=== PATIENT | female | born 1960 | race Caucasian/White ===

== ENCOUNTER 2018-07-10 12:41 | Emergency (ER) | payer MEDICAID ==
[~2018-07-10] VITALS: Ht 162.6 cm; Wt 59.0 kg
--- NOTE | 2018-07-10 13:02 | NUR ---
Patient discharged to home in stable conditon & brisk steady gait. Written and verbal after care instructions given to patient. Patient verbalizes understanding of instructions.
== END 2018-07-10 13:03 | disposition home or self-care (01) ==
LOC: ER 12:41
DX: J20.9 Acute bronchitis, unspecified (principal); Z90.49 Acquired absence of other specified parts of digestive tract
CPT/HCPCS: A4663

== ENCOUNTER 2019-02-06 12:22 | Emergency (ER) | payer MEDICAID ==
[~2019-02-06] VITALS: Ht 162.6 cm; Wt 59.0 kg
--- NOTE | 2019-02-06 12:46 | NUR ---
Patient discharged to home in stable conditon. Written and verbal after care instructions given. Patient verbalizes understanding of instructions.pt walks i nsteady gait.
== END 2019-02-06 12:47 | disposition home or self-care (01) ==
LOC: ER 12:22
DX: M54.5 Low back pain (principal); Z90.49 Acquired absence of other specified parts of digestive tract; W19.XXXA Unspecified fall, initial encounter; Y93.89 Activity, other specified; Y92.89 Other specified places as the place of occurrence of the external cause; Y99.8 Other external cause status
CPT/HCPCS: A4663

== ENCOUNTER 2019-07-10 10:27 | Emergency (ER) | payer MEDICAID ==
[~2019-07-10] VITALS: Ht 162.6 cm; Wt 63.5 kg
[2019-07-10] MEDS ORDERED: MAG HYDROX/AL HYDROX/SIMETH 30 ML LIQUID UDC PO ONE (10:45)
[2019-07-10] MEDS ORDERED: LIDOCAINE VISCUS 2% 15 ML UDC MM ONE (10:45)
--- NOTE | 2019-07-10 10:45 | NUR ---
PATIENT WAS MSE BY DR RUDOLPH IN ROM 04B.
[2019-07-10] MEDS ORDERED: LIDOCAINE VISCUS 2% 15 ML UDC ONE (10:53)
[2019-07-10] MEDS ORDERED: MAG HYDROX/AL HYDROX/SIMETH 30 ML LIQUID UDC ONE (10:53)
[2019-07-10 11:09] LABS: BASOPHILS # (AUTO) 0.1 K/uL (0.0-8.0); EOSINOPHILS # (AUTO) 0.1 K/uL (0.0-0.7); EOSINOPHILS % (AUTO) 1.5 % (0.0-7.0); HEMATOCRIT 39.6 % (31.2-41.9); HEMOGLOBIN 13.2 g/dL (10.9-14.3); LYMPHOCYTES # (AUTO) 1.5 K/uL (20.0-40.0); LYMPHOCYTES % (AUTO) 18.9 % (20.5-51.5); MEAN CORPUSCULAR HEMOGLOBIN 30.5 uug (24.7-32.8); MEAN CORPUSCULAR HGB CONC 33 g/dL (32.3-35.6); MEAN CORPUSCULAR VOLUME 91.2 fL (75.5-95.3); MONOCYTES # (AUTO) 0.5 K/uL (2.0-10.0); MONOCYTES % (AUTO) 5.6 % (0.0-11.0); NEUTROPHILS # (AUTO) 5.8 K/uL (1.8-8.9); PLATELET COUNT (AUTO) 220 K/uL (179-408); RED BLOOD CELL COUNT(AUTO) 4.34 MIL/uL (3.63-4.92)
[2019-07-10 11:25] LABS: BILIRUBIN,DIRECT 0.1 mg/dL (0.0-0.2); BILIRUBIN,TOTAL 0.2 mg/dL (0.2-1.0); CREATININE 0.9 mg/dL (0.6-1.3); POTASSIUM 4.1 mmol/L (3.5-5.1); TOTAL PROTEIN, SERUM 7.2 g/dL (6.4-8.2)
[2019-07-10 12:23] LABS: *BILIRUBIN,URIN NEGATIVE (NEGATIVE); *BLOOD, URINE NEGATIVE (NEGATIVE); *CLARITY,URINE CLEAR (CLEAR); *COLOR,URINE YELLOW (YELLOW); *KETONES,URINE NEGATIVE (NEGATIVE); *UROBILINOGEN,URINE 0.2 E.U./dl (NORMAL); LEUKOCYTE ESTERASE ,URINE NEGATIVE (NEGATIVE); NITRITE, URINE NEGATIVE (NEGATIVE); PH,URINE 7.5 (5.0-8.0); UGLUCOSE NEGATIVE (NEGATIVE)
--- NOTE | 2019-07-10 12:41 | NUR ---
PATIENT BACK FROM CT. NOT IN ANY DISTRESS.
--- NOTE | 2019-07-10 13:07 | NUR ---
DR RUDOLPH AT BEDSIDE MADE PATIENT AWRE OF TEST RESULTS.
--- NOTE | 2019-07-10 13:17 | NUR ---
Patient discharged to home in stable condition. Written and verbal after care instructions given. Patient verbalizes understanding of instructions. Stressed follow up or return to ER for worsening s/s.
[2019-07-10 13:19] VITALS: BP 117/82
== END 2019-07-10 13:19 | disposition home or self-care (01) ==
LOC: ER 10:27
DX: R10.13 Epigastric pain (principal); R10.10 Upper abdominal pain, unspecified; E03.9 Hypothyroidism, unspecified
CPT/HCPCS: 36415; 71045; 83690; 85025; 93005; A4663

== ENCOUNTER 2019-12-19 09:11 | Emergency (ER) | payer MEDICAID ==
[~2019-12-19] VITALS: Ht 162.6 cm; Wt 63.5 kg
--- NOTE | 2019-12-19 09:34 | NUR ---
Dr Pepper at the bedside for MSE.
[2019-12-19] MEDS ORDERED: IV NORMAL SALINE 1000 ML BAG IV ONE (09:45)
[2019-12-19] MEDS ORDERED: KETOROLAC TROMETHAMINE 15 MG INJ IVP ONE (09:45)
[2019-12-19] MEDS ORDERED: KETOROLAC TROMETHAMINE 15 MG INJ ONE (09:53)
[2019-12-19 10:31] LABS: BASOPHILS # (AUTO) 0.1 K/uL (0.0-8.0); BASOPHILS % (AUTO) 0.8 % (0.0-2.0); EOSINOPHILS # (AUTO) 0.2 K/uL (0.0-0.7); EOSINOPHILS % (AUTO) 2.2 % (0.0-7.0); HEMOGLOBIN 13.6 g/dL (10.9-14.3); LYMPHOCYTES # (AUTO) 1.3 K/uL (20.0-40.0); MEAN CORPUSCULAR HEMOGLOBIN 31.8 uug (24.7-32.8); MEAN CORPUSCULAR HGB CONC 35 g/dL (32.3-35.6); MEAN CORPUSCULAR VOLUME 91.2 fL (75.5-95.3); MONOCYTES # (AUTO) 0.5 K/uL (2.0-10.0); MONOCYTES % (AUTO) 6.4 % (0.0-11.0); NEUTROPHILS # (AUTO) 5.6 K/uL (1.8-8.9); NEUTROPHILS % (AUTO) 73.6 % (38.5-71.5); PLATELET COUNT (AUTO) 209 K/uL (179-408); RED BLOOD CELL COUNT(AUTO) 4.27 MIL/uL (3.63-4.92); WHITE BLOOD COUNT (AUTO) 7.6 K/uL (3.8-11.8)
[2019-12-19 10:43] LABS: CREATININE 0.9 mg/dL (0.6-1.3); POTASSIUM 4.9 mmol/L (3.5-5.1)
[2019-12-19 10:50] LABS: BILIRUBIN,DIRECT 0.1 mg/dL (0.0-0.2); BILIRUBIN,TOTAL 0.2 mg/dL (0.2-1.0); TOTAL PROTEIN, SERUM 7.1 g/dL (6.4-8.2)
--- NOTE | 2019-12-19 10:55 | NUR ---
Patient is resting comfortably in bed with eyes closed, NAD noted.
[2019-12-19 11:00] LABS: *BILIRUBIN,URIN NEGATIVE (NEGATIVE); *BLOOD, URINE NEGATIVE (NEGATIVE); *CLARITY,URINE SLIGHTLY CLOUDY (CLEAR); *COLOR,URINE YELLOW (YELLOW); *KETONES,URINE NEGATIVE (NEGATIVE); *UROBILINOGEN,URINE 0.2 E.U./dl (NORMAL); LEUKOCYTE ESTERASE ,URINE NEGATIVE (NEGATIVE); NITRITE, URINE NEGATIVE (NEGATIVE); UGLUCOSE NEGATIVE (NEGATIVE)
--- NOTE | 2019-12-19 11:10 | NUR ---
IV removed. Catheter intact and site benign. Pressure and 4x4 gauze applied to site. No bleeding noted.
[2019-12-19 11:11] VITALS: BP 118/88
[2019-12-19 13:09] LABS: BACTERIA,URINE NONE SEEN /HPF (NONE SEEN); RBC,URINE NONE SEEN /HPF (0-3); SQUAMOUS EPITHELIAL CELL,UR FEW /HPF (NONE SEEN); WBC,URINE 0-3 /HPF (0-3)
== END 2019-12-19 11:11 | disposition home or self-care (01) ==
LOC: ER 09:11
DX: M54.5 Low back pain (principal); M47.816 Spondylosis without myelopathy or radiculopathy, lumbar region; I70.0 Atherosclerosis of aorta; E03.9 Hypothyroidism, unspecified; M47.818 Spondylosis without myelopathy or radiculopathy, sacral and sacrococcygeal region
CPT/HCPCS: 36415; 71045; 72100; 72202; 80048; 80076; 81001; 83690; 84484; 85025; 85651; 85730; 86140; 93005; 96374; 99285; J1885; 70030-TC; A4663; J7030

== ENCOUNTER 2021-06-08 11:30 | Emergency (ER) | payer MEDICAID ==
[~2021-06-08] VITALS: Ht 170.2 cm; Wt 68.0 kg
--- NOTE | 2021-06-08 11:50 | NUR ---
Patient ambulatory, alert and oriented x4 with complaints of left lower eyelid pain 4/10. Noted with swelling on left lower eyelid started this morning. Denies nausea/vomiting, SOB, abdominal pain. Vital stable.
--- NOTE | 2021-06-08 11:52 | NUR ---
MD at bedside, medical screening exam in progress.
[2021-06-08] MEDS ORDERED: diphenhydrAMINE 25 MG CAP PO ONE ×2 (12:00→12:02)
--- NOTE | 2021-06-08 12:09 | NUR ---
Patient refused benadryl as ordered, she stated she needs to drive home. Patient discharged to home in stable condition. Written and verbal after care instructions given. Patient verbalizes understanding of instructions. Stressed follow up or return to ER for worsening s/s.
[2021-06-08 12:10] VITALS: BP 125/70
== END 2021-06-08 12:11 | disposition home or self-care (01) ==
LOC: ER 11:32
DX: H01.005 Unspecified blepharitis left lower eyelid (principal); E03.9 Hypothyroidism, unspecified
CPT/HCPCS: A4663; Q0163